=== PATIENT | male | born 1950 | race Hispanic/Latino ===

== ENCOUNTER 2020-04-24 14:02 | Observation (INO) | payer MEDICARE ==
[2020-04-24] MEDS ORDERED: PANTOPRAZOLE 40 MG INJ IV ONE (14:18)
[2020-04-24] MEDS ORDERED: PANTOPRAZOLE 80 MG in SODIUM CHLORIDE 0.9% 100 ML IV ONE (14:18)
--- NOTE | 2020-04-24 14:48 | XRay Report ---
CHEST 1 VIEW 04/24/2020 2:24 PM INDICATION / CLINICAL INFORMATION: GI Bleed. COMPARISON: None available. FINDINGS: SUPPORT DEVICES: None. HEART / MEDIASTINUM: Heart is normal size. Median sternotomy wires and CABG clips. LUNGS / PLEURA: No significant pulmonary or pleural abnormality. No pneumothorax. ADDITIONAL FINDINGS: No significant additional findings. IMPRESSION: 1. No acute findings. Signer Name: Linnea Osorio MD Signed: 04/24/2020 2:43 PM Workstation Name: [id number]
[2020-04-24 15:23] LABS: Basophils % (Auto) 0.6 % (0.0-1.8); Eosinophils # (Auto) 0.1 K/mm3 (0.0-0.4); Eosinophils % (Auto) 1.6 % (0.0-4.3); Hematocrit 31.8 % (35.5-45.6); Hemoglobin 10.6 gm/dl (11.8-15.2); Lymphocytes # (Auto) 1.5 K/mm3 (1.2-5.4); Lymphocytes % (Auto) 17.4 % (13.4-35.0); Mean Corpuscular HGB Conc 33 % (32-34); Mean Corpuscular Volume 84 fl (84-94); Monocytes # (Auto) 0.8 K/mm3 (0.0-0.8); Monocytes % (Auto) 9.3 % (0.0-7.3); Platelet Count 341 K/mm3 (140-440); Red Blood Count 3.78 M/mm3 (3.65-5.03); Red Cell Distribution Width 19.9 % (13.2-15.2)
[2020-04-24 15:31] LABS: INR 1.28 (0.87-1.13); Partial Thromboplastin Time 29.5 Sec. (24.2-36.6)
[2020-04-24 15:42] LABS: BUN/Creatinine Ratio 41; Blood Urea Nitrogen 41 mg/dL (9-20); Calcium 8.9 mg/dL (8.4-10.2); Hemolysis Index 5
--- NOTE | 2020-04-24 15:50 | Emergency Department Report ---
ED GI Bleed HPI - General Chief complaint: GI Bleed Stated complaint: COFFEE GROUND STOOLS Time Seen by Provider: 04/24/20 14:17 Source: patient, EMS Mode of arrival: Stretcher Limitations: No Limitations, Physical Limitation - History of Present Illness Initial comments: Mr. penn is a 70-year-old male with history of CAD status post four-vessel CABG, atrial fibrillation, diabetes mellitus, hypertension, skin cancer who presents with dark black stools for the last 4 days. Patient takes Xarelto for atrial fibrillation. He has recently used laxatives and antidiarrheal agents for both constipation and diarrhea. No previous history of GI bleed or peptic ulcer disease. Patient has mild nausea. He has decreased appetite. Stomach feels upset. No discrete pain. Patient was just released from halfway facility for rehabilitation on Monday. He underwent rehabilitation and skilled nurse facility for lower extremity weakness due to severe degenerative disc disease. Patient stopped smoking 2007. Former social drinker. Retired cdl truck driver. Patient is . MD complaint: melena -: Gradual, days(s) (4) Severity scale (0 -10): 0 Quality: painless Consistency: constant Improves with: none Worsens with: none Context: blood thinners (Xarelto) Associated Symptoms: nausea, loss of appetite, other (Stomach upset) - Related Data Allergies Allergy/AdvReac Type Severity Reaction Status Date / Time No Known Allergies Allergy Unverified 04/24/20 14:44 ED Review of Systems ROS: Stated complaint: COFFEE GROUND STOOLS Other details as noted in HPI Comment: All other systems reviewed and negative Constitutional: denies: fever, malaise Respiratory: denies: cough, shortness of breath Gastrointestinal: nausea, diarrhea, constipation. denies: abdominal pain ED Past Medical Hx - Past Medical History Previous Medical History?: Yes Hx Hypertension: Yes Hx Diabetes: Yes Additional medical history: a.fib, skin cancer on nose and forehead - Surgical History Past Surgical History?: Yes Additional Surgical History: CABG 2007 - Social History Smoking Status: Former Smoker Substance Use Type: None ED Physical Exam - General Limitations: Physical Limitation General appearance: alert, in no apparent distress - Head Head exam: Present: atraumatic, normocephalic - Eye Eye exam: Present: normal appearance - ENT ENT exam: Present: mucous membranes moist - Neck Neck exam: Present: normal inspection, full ROM - Respiratory Respiratory exam: Present: normal lung sounds bilaterally. Absent: respiratory distress, wheezes, rales, rhonchi - Cardiovascular Cardiovascular Exam: Present: regular rate, irregular rhythm, normal heart sounds. Absent: systolic murmur, diastolic murmur, rubs, gallop - GI/Abdominal GI/Abdominal exam: Present: soft, normal bowel sounds. Absent: distended, tende rness, guarding, rebound - Rectal Rectal exam: Present: heme (+) stool, other (Dark tarry brown stool) - Extremities Exam Extremities exam: Present: normal inspection - Neurological Exam Neurological exam: Present: alert, oriented X3 - Psychiatric Psychiatric exam: Present: normal affect, normal mood - Skin Skin exam: Present: warm, dry, intact, other (Erythematous skin sacral region, skin intact). Absent: rash ED Medical Decision Making - Lab Data Result diagrams: 04/24/20 15:01 04/24/20 15:01 Laboratory Results - last 24 hr 04/24/20 04/24/20 04/24/20 15:01 15:01 15:01 WBC 8.7 RBC 3.78 Hgb 10.6 L Hct 31.8 L MCV 84 MCH 28 MCHC 33 RDW 19.9 H Plt Count 341 Lymph % (Auto) 17.4 [place] % (Auto) 9.3 H Eos % (Auto) 1.6 Baso % (Auto) 0.6 Lymph # (Auto) 1.5 [place] # (Auto) 0.8 Eos # (Auto) 0.1 Baso # (Auto) 0.0 Seg Neutrophils % 71.1 H Seg Neutrophils # 6.2 PT 16.2 H INR 1.28 H APTT 29.5 Sodium 140 Potassium 4.4 Chloride 100.0 Carbon Dioxide 20 L Anion Gap 24 BUN 41 H Creatinine 1.0 Estimated GFR > 60 BUN/Creatinine Ratio 41 Glucose 145 H Calcium 8.9 - EKG Data -: EKG Interpreted by Me - EKG Data 04/24/20 15:47 EKG obtained 1452 EKG interpreted by me Atrial fibrillation ventricular rate 80 bpm normal axis normal QTC no ST elevation nonspecific T wave pattern - Radiology Data Radiology results: report reviewed CHEST 1 VIEW 04/24/2020 2:24 PM INDICATION / CLINICAL INFORMATION: GI Bleed. COMPARISON: None available. FINDINGS: SUPPORT DEVICES: None. HEART / MEDIASTINUM: Heart is normal size. Median sternotomy wires and CABG clips. LUNGS / PLEURA: No significant pulmonary or pleural abnormality. No pneumoth orax. ADDITIONAL FINDINGS: No significant additional findings. IMPRESSION: 1. No acute findings. - Medical Decision Making 1. Upper GI bleed: Patient has melena, INR elevated 1.28 with history of Xarelto use. Normal platelet count. Hemoglobin 10. Patient has been cardiovascular stable. Protonix bolus and infusion initiated. Patient has 2 peripheral IVs. Peptic ulcer disease versus gastritis. No indication of liver disease. Patient is admitted to telemetry. Critical care attestation.: If time is entered above; I have spent that time in minutes in the direct care of this critically ill patient, excluding procedure time. ED Disposition Clinical Impression: Acute upper GI bleed Disposition: OP ADMIT IP TO THIS HOSP Is pt being admited?: Yes Does the pt Need Aspirin: No Condition: Stable
[2020-04-24] MEDS ORDERED: SODIUM CHLORIDE 0.9% 1000 ML 1,000 ML IV ONE (15:52)
[2020-04-24 15:56] LABS: Alanine Aminotransferase 14 units/L (7-56); Albumin 3.3 g/dL (3.9-5); Bilirubin,Direct < 0.2 mg/dL (0-0.2)
--- NOTE | 2020-04-24 19:33 | Gastroenterology Consultation ---
History of Present Illness - Reason for Consult Consult date: 04/24/20 melena Requesting physician: LEXY FLORES - History of Present Illness This is a 70 yo male with pmh of DM, HTN, and afib on Xarelto presenting with 4 day h/o black tarry stools. Mild abdominal pain but no nausea/vomiting. No prior h/o GI bleed. Per patient, last colonoscopy 10 years ago and normal. Takes ibuprofen but not regularly. Last Bm was this morning. In the ED, HD stable. Hgb at 10 and no known prior labs. Medication list reviewed. Past History Past Medical History: atrial fib, hypertension Past Surgical History: denies: bowel surgery Social history: no significant social history Family history: no significant family history Medications and Allergies Allergies Allergy/AdvReac Type Severity Reaction Status Date / Time No Known Allergies Allergy Unverified 04/24/20 14:44 Active Meds: Active Medications Pantoprazole Sodium 80 mg/ (Sodium Chloride) 100 mls @ 10 mls/hr IV ONCE ONE Stop: 04/25/20 00:17 Last Admin: 04/24/20 15:19 Dose: 8 mg/hr, 10 mls/hr Documented by: Review of Systems - Review of Systems All systems: negative Constitutional: no weight loss, no weight gain Cardiovascular: no chest pain, no edema Gastrointestinal: abdominal pain, melena, no nausea, no vomiting, no BRBPR Neurological: no head injury Psychiatric: no anxiety Endocrine: no cold intolerance Hematologic/Lymphatic: no easy bruising Exam - Constitutional Vital Signs: Temp Pulse Resp BP Pulse Ox 98.3 F 75 19 125/71 99 04/24/20 19:00 04/24/20 19:00 04/24/20 19:00 04/24/20 19:00 04/24/20 19:00 General appearance: no acute distress - EENT Eyes: EOM intact ENT: hearing intact - Respiratory Respiratory effort: normal - Cardiovascular Rhythm: regular Heart Sounds: Present: S1 & S2 - Gastrointestinal General gastrointestinal: Present: soft, non-tender, non-distended - Neurologic Neurological: alert and oriented x3 - Labs CBC & Chem 7: 04/24/20 15:01 04/24/20 15:01 Lab Results: Laboratory Results - last 24 hr 04/24/20 04/24/20 04/24/20 15:01 15:01 15:01 WBC 8.7 RBC 3.78 Hgb 10.6 L Hct 31.8 L MCV 84 MCH 28 MCHC 33 RDW 19.9 H Plt Count 341 Lymph % (Auto) 17.4 [place] % (Auto) 9.3 H Eos % (Auto) 1.6 Baso % (Auto) 0.6 Lymph # (Auto) 1.5 [place] # (Auto) 0.8 Eos # (Auto) 0.1 Baso # (Auto) 0.0 Seg Neutrophils % 71.1 H Seg Neutrophils # 6.2 PT 16.2 H INR 1.28 H APTT 29.5 Sodium 140 Potassium 4.4 Chloride 100.0 Carbon Dioxide 20 L Anion Gap 24 BUN 41 H Creatinine 1.0 Estimated GFR > 60 BUN/Creatinine Ratio 41 Glucose 145 H Calcium 8.9 Total Bilirubin Direct Bilirubin Indirect Bilirubin AST ALT Alkaline Phosphatase Total Protein Albumin Albumin/Globulin Ratio 04/24/20 15:15 WBC RBC Hgb Hct MCV MCH MCHC RDW Plt Count Lymph % (Auto) [place] % (Auto) Eos % (Auto) Baso % (Auto) Lymph # (Auto) [place] # (Auto) Eos # (Auto) Baso # (Auto) Seg Neutrophils % Seg Neutrophils # PT INR APTT Sodium Potassium Chloride Carbon Dioxide Anion Gap BUN Creatinine Estimated GFR BUN/Creatinine Ratio Glucose Calcium Total Bilirubin 0.40 Direct Bilirubin < 0.2 Indirect Bilirubin 0.2 AST 13 ALT 14 Alkaline Phosphatase 102 Total Protein 5.8 L Albumin 3.3 L Albumin/Globulin Ratio 1.3 Assessment and Plan - Patient Problems (1) Acute upper GI bleed Current Visit: Yes Status: Acute Plan to address problem: # Melena # Upper GI bleed - HD stable - Hgb at 10. no known prior baseline. - ddx including PUD, gastritis, AVMs. - on Xarelto at home. last dose yesterday AM (04/23/2020). Rec - monitor H/H and transfuse as needed. - hold anticoagulation. - PPI IV - will plan for EGD tomorrow. - keep NPO.
[2020-04-24] MEDS: PANTOPRAZOLE 40 MG INJ IV SCH (21:30)
--- NOTE | 2020-04-24 22:33 | History and Physical Report ---
History of Present Illness Date of examination: 04/24/20 Date of admission: 04/24/20 18:10 Chief complaint: Dark stools for the last 4 days History of present illness: 70-year-old male with history of coronary artery disease, status post CABG and hypertension comes in for dark stools of 4 days duration. Patient is on Xarelto for atrial fibrillation. No lightheadedness or syncope. No hematemesis. Patient has decreased appetite and mild nausea. No fever or chills. No exposure to coronavirus. No exacerbating or relieving factors. - Past Medical History Previous Medical History?: Yes Hx Hypertension: Yes Hx Diabetes: Yes Additional medical history: a.fib, skin cancer on nose and forehead - Surgical History Past Surgical History?: Yes Additional Surgical History: CABG 2007 - Social History Smoking Status: Former Smoker Substance Use Type: None Review of Systems ROS: Stated complaint: COFFEE GROUND STOOLS Other details as noted in HPI Comment: All other systems reviewed and negative Constitutional: denies: fever, malaise Respiratory: denies: cough, shortness of breath Gastrointestinal: nausea, diarrhea, constipation. denies: abdominal pain Past History Past Medical History: atrial fib, hypertension Past Surgical History: denies: bowel surgery Social history: no significant social history Family history: no significant family history Medications and Allergies Allergies Allergy/AdvReac Type Severity Reaction Status Date / Time No Known Allergies Allergy Unverified 04/24/20 14:44 Home Medications Medication Instructions Recorded Confirmed Last Taken Type Aspirin [Aspirin BABY CHEW TAB] 81 mg PO QDAY 04/25/20 04/25/20 Unknown History Gabapentin [Neurontin] 100 mg PO TID 04/25/20 04/25/20 Unknown History Lisinopril/Hydrochlorothiazide 1 each PO DAILY 04/25/20 04/25/20 Unknown History [Zestoretic 10-12.5 mg Tablet] Lovastatin [Altoprev] 40 mg PO HS 04/25/20 04/25/20 Unknown History Rivaroxaban [Xarelto] 20 mg PO QHS 04/25/20 04/25/20 Unknown History amLODIPine [Norvasc] 5 mg PO DAILY 04/25/20 04/25/20 Unknown History atenoloL [Tenormin] 50 mg PO DAILY 04/25/20 04/25/20 Unknown History cloNIDine [Catapres] 0.1 mg PO Q8HR PRN 04/25/20 04/25/20 Unknown History glipiZIDE [Glucotrol] 5 mg PO QDAY 04/25/20 04/25/20 Unknown History metFORMIN [Glucophage] 500 mg PO BID 04/25/20 04/25/20 Unknown History Active Meds: Active Medications Pantoprazole Sodium 80 mg/ (Sodium Chloride) 100 mls @ 10 mls/hr IV ONCE ONE Stop: 04/25/20 00:17 Last Admin: 04/24/20 15:19 Dose: 8 mg/hr, 10 mls/hr Documented by: Pantoprazole Sodium (Protonix) 40 mg IV BID AURELIANO Last Admin: 04/24/20 21:30 Dose: 40 mg Documented by: Exam - Constitutional Vitals: Temp Pulse Resp BP Pulse Ox 98.2 F 84 20 117/52 99 04/24/20 20:34 04/24/20 20:34 04/24/20 20:34 04/24/20 20:34 04/24/20 20:34 General appearance: Present: no acute distress, well-nourished - EENT Eyes: Present: PERRL ENT: hearing intact, clear oral mucosa - Neck Neck: Present: supple, normal ROM - Respiratory Respiratory effort: normal Respiratory: bilateral: CTA - Cardiovascular Heart rate: 78 Rhythm: irregularly irregular Heart Sounds: Present: S1 & S2. Absent: rub, click - Extremities Extremities: no ischemia, pulses intact, pulses symmetrical, No edema Peripheral Pulses: within normal limits - Abdominal General gastrointestinal: Present: soft, non-tender, non-distended, normal bowel sounds Male genitourinary: Present: normal - Rectal Rectal Exam: deferred - Integumentary Integumentary: Present: clear, warm, dry - Musculoskeletal Musculoskeletal: gait normal, strength equal bilaterally - Psychiatric Psychiatric: appropriate mood/affect, intact judgment & insight - Neurologic Neurologic: CNII-XII intact, moves all extremities - Allied Health Allied health notes reviewed: nursing, case management HEART Score - HEART Score History: Slightly suspicious Age: > 65 Risk factors: 1-2 risk factors - Critical Actions Critical Actions: 4-6 pts:12-16.6% risk of adverse cardiac event. Should be admitted Results - Labs CBC & Chem 7: 04/25/20 04:48 04/25/20 04:48 Labs: Laboratory Last Values WBC 8.7 K/mm3 (4.5-11.0) 04/24/20 15:01 RBC 3.78 M/mm3 (3.65-5.03) 04/24/20 15:01 Hgb 10.6 gm/dl (11.8-15.2) L 04/24/20 15:01 Hct 31.8 % (35.5-45.6) L 04/24/20 15:01 MCV 84 fl (84-94) 04/24/20 15:01 MCH 28 pg (28-32) 04/24/20 15:01 MCHC 33 % (32-34) 04/24/20 15:01 RDW 19.9 % (13.2-15.2) H 04/24/20 15:01 Plt Count 341 K/mm3 (140-440) 04/24/20 15:01 Lymph % (Auto) 17.4 % (13.4-35.0) 04/24/20 15:01 [place] % (Auto) 9.3 % (0.0-7.3) H 04/24/20 15:01 Eos % (Auto) 1.6 % (0.0-4.3) 04/24/20 15:01 Baso % (Auto) 0.6 % (0.0-1.8) 04/24/20 15:01 Lymph # (Auto) 1.5 K/mm3 (1.2-5.4) 04/24/20 15:01 [place] # (Auto) 0.8 K/mm3 (0.0-0.8) 04/24/20 15:01 Eos # (Auto) 0.1 K/mm3 (0.0-0.4) 04/24/20 15:01 Baso # (Auto) 0.0 K/mm3 (0.0-0.1) 04/24/20 15:01 Seg Neutrophils % 71.1 % (40.0-70.0) H 04/24/20 15:01 Seg Neutrophils # 6.2 K/mm3 (1.8-7.7) 04/24/20 15:01 PT 16.2 Sec. (12.2-14.9) H 04/24/20 15:01 INR 1.28 (0.87-1.13) H 04/24/20 15:01 APTT 29.5 Sec. (24.2-36.6) 04/24/20 15:01 Sodium 140 mmol/L (137-145) 04/24/20 15:01 Potassium 4.4 mmol/L (3.6-5.0) 04/24/20 15:01 Chloride 100.0 mmol/L (98-107) 04/24/20 15:01 Carbon Dioxide 20 mmol/L (22-30) L 04/24/20 15:01 Anion Gap 24 mmol/L 04/24/20 15:01 BUN 41 mg/dL (9-20) H 04/24/20 15:01 Creatinine 1.0 mg/dL (0.8-1.3) 04/24/20 15:01 Estimated GFR > 60 ml/min 04/24/20 15:01 BUN/Creatinine Ratio 41 % 04/24/20 15:01 Glucose 145 mg/dL (75-100) H 04/24/20 15:01 Calcium 8.9 mg/dL (8.4-10.2) 04/24/20 15:01 Total Bilirubin 0.40 mg/dL (0.1-1.2) 04/24/20 15:15 Direct Bilirubin < 0.2 mg/dL (0-0.2) 04/24/20 15:15 Indirect Bilirubin 0.2 mg/dL 04/24/20 15:15 AST 13 units/L (5-40) 04/24/20 15:15 ALT 14 units/L (7-56) 04/24/20 15:15 Alkaline Phosphatase 102 units/L (35-129) 04/24/20 15:15 Total Protein 5.8 g/dL (6.3-8.2) L 04/24/20 15:15 Albumin 3.3 g/dL (3.9-5) L 04/24/20 15:15 Albumin/Globulin Ratio 1.3 % 04/24/20 15:15 - Imaging and Cardiology Imaging and Cardiology: Chest x-ray No acute findings. Jim/IV: IV Catheter Type [Right Hand] Peripheral IV Assessment and Plan Advance Directives: Yes (Full code) VTE prophylaxis?: Mechanical Plan of care discussed with patient/family: Yes - Patient Problems (1) Acute upper GI bleed Current Visit: Yes Status: Acute Plan to address problem: Patient on Xarelto which was discontinued. GI consult. Possible EGD. Serial hemoglobin and hematocrits. Transfuse if necessary. (2) Anemia Current Visit: Yes Status: Chronic Qualifiers: Anemia type: unspecified type Qualified Code(s): D64.9 - Anemia, unspecified Plan to address problem: Anemia work-up (3) Atrial fibrillation Current Visit: Yes Status: Chronic Plan to address problem: Hold Xarelto for now We will get cardiology consult regarding restarting Xarelto (4) Hypertension Current Visit: Yes Status: Chronic Qualifiers: Hypertension type: essential hypertension Qualified Code(s): I10 - Essential (primary) hypertension Plan to address problem: Antihypertensives if necessary. Antihypertensives on hold. (5) Coronary artery disease Current Visit: Yes Status: Acute Qualifiers: Coronary Disease-Associated Artery/Lesion type: bypass graft [place] vs. transplanted heart: [place] heart Plan to address problem: Isosorbide on hold. (6) DVT prophylaxis Current Visit: Yes Status: Acute Plan to address problem: On SCDs and GI prophylaxis.
[2020-04-24] MEDS ORDERED: METOCLOPRAMIDE 10 MG/2 ML INJ IV PRN (22:34)
[2020-04-24] MEDS ORDERED: ONDANSETRON 4 MG/2 ML INJ IV PRN (22:34)
[2020-04-24] MEDS ORDERED: ACETAMINOPHEN 325 MG TAB PO PRN (22:34)
[2020-04-24] MEDS ORDERED: D5W/0.9% NACL 1,000 ML IV SCH (23:00)
[2020-04-25 05:21] LABS: Basophils % (Auto) 0.5 % (0.0-1.8); Eosinophils # (Auto) 0.4 K/mm3 (0.0-0.4); Eosinophils % (Auto) 4.6 % (0.0-4.3); Hematocrit 28.7 % (35.5-45.6); Hemoglobin 9.6 gm/dl (11.8-15.2); Lymphocytes # (Auto) 2.3 K/mm3 (1.2-5.4); Lymphocytes % (Auto) 27.5 % (13.4-35.0); Mean Corpuscular HGB Conc 34 % (32-34); Mean Corpuscular Volume 84 fl (84-94); Monocytes # (Auto) 0.8 K/mm3 (0.0-0.8); Monocytes % (Auto) 9.8 % (0.0-7.3); Platelet Count 294 K/mm3 (140-440); Red Blood Count 3.42 M/mm3 (3.65-5.03); Red Cell Distribution Width 19.2 % (13.2-15.2)
[2020-04-25 05:38] LABS: Alanine Aminotransferase 11 units/L (7-56); BUN/Creatinine Ratio 37; Blood Urea Nitrogen 37 mg/dL (9-20); Hemolysis Index 5
[2020-04-25 08:02] LABS: % Iron Saturation 20.56 %
[2020-04-25] MEDS ORDERED: WATER FOR IRRIG STERILE 250 ML BOTTLE IR ONE (08:07)
[2020-04-25] MEDS ORDERED: WATER FOR IRRIG STERILE 1,000 ML BOTTLE ONE (08:07)
[2020-04-25] MEDS ORDERED: SODIUM CHLORIDE 0.9% 1000 ML 1,000 ML ONE (08:07)
--- NOTE | 2020-04-25 08:20 | Progress Note ---
Assessment and Plan Assessment and plan: (1) Acute upper GI bleed Current Visit: Yes Status: Acute Plan to address problem: Patient on Xarelto which was discontinued. GI consult appreciated, did EGD showed Samuel duodenal ulcer, severe esophagitis and gastritis GI recommended to do CAT scan of abdomen and pelvis, continue with PPI and start him on clear liquid diet. Hemiglobin dropped from 10.6-9.6 is morning Transfuse if necessary. (2) Anemia Current Visit: Yes Status: Chronic Qualifiers: Anemia type: unspecified type Qualified Code(s): D64.9 - Anemia, unspecified Plan to address problem: Anemia work-up Hemoglobin dropped from 10.6 to 9.6 this morning (3) Atrial fibrillation Current Visit: Yes Status: Chronic Plan to address problem: Hold Xarelto for now We will get cardiology consult regarding restarting Xarelto (4) Hypertension Current Visit: Yes Status: Chronic Qualifiers: Hypertension type: essential hypertension Qualified Code(s): I10 - Essential (primary) hypertension Plan to address problem: Antihypertensives if necessary. Antihypertensives on hold. (5) Coronary artery disease Current Visit: Yes Status: Acute Qualifiers: Coronary Disease-Associated Artery/Lesion type: bypass graft [place] vs. transplanted heart: [place] heart Plan to address problem: Isosorbide on hold. (6) DVT prophylaxis Current Visit: Yes Status: Acute Plan to address problem: On SCDs and GI prophylaxis. History Interval history: Patient was seen and evaluated this morning Patient did not have any bowel movement overnight Patient did not have any complaints Hospitalist Physical - Physical exam Narrative exam: Not in cardiopulmonary distress. The patient is obese. Vital signs as documented. Head exam is unremarkable. No scleral icterus . Neck is without jugular venous distension, thyromegaly, or carotid bruits. Lungs are clear to auscultation. Cardiac exam reveals regular rate and Rhythm. Abdominal exam reveals normal bowel sounds, nontender, no organomegaly. Extremities are nonedematous and both femoral and pedal pulses are normal. PLUG GROWER: Alert and oriented 3. No focal weakness. - Constitutional Vitals: Temp Pulse Resp BP Pulse Ox 98.3 F 89 20 141/80 98 04/25/20 05:05 04/25/20 05:05 04/25/20 05:05 04/25/20 05:05 04/25/20 05:05 General appearance: Present: no acute distress, well-nourished HEART Score - HEART Score Age: > 65 Risk factors: 1-2 risk factors - Critical Actions Critical Actions: 4-6 pts:12-16.6% risk of adverse cardiac event. Should be admitted Results - Labs CBC & Chem 7: 04/25/20 04:48 04/25/20 04:48 Labs: Laboratory Last Values WBC 8.5 K/mm3 (4.5-11.0) 04/25/20 04:48 RBC 3.42 M/mm3 (3.65-5.03) L 04/25/20 04:48 Hgb 9.6 gm/dl (11.8-15.2) L 04/25/20 04:48 Hct 28.7 % (35.5-45.6) L 04/25/20 04:48 MCV 84 fl (84-94) 04/25/20 04:48 MCH 28 pg (28-32) 04/25/20 04:48 MCHC 34 % (32-34) 04/25/20 04:48 RDW 19.2 % (13.2-15.2) H 04/25/20 04:48 Plt Count 294 K/mm3 (140-440) 04/25/20 04:48 Lymph % (Auto) 27.5 % (13.4-35.0) 04/25/20 04:48 [place] % (Auto) 9.8 % (0.0-7.3) H 04/25/20 04:48 Eos % (Auto) 4.6 % (0.0-4.3) H 04/25/20 04:48 Baso % (Auto) 0.5 % (0.0-1.8) 04/25/20 04:48 Lymph # (Auto) 2.3 K/mm3 (1.2-5.4) 04/25/20 04:48 [place] # (Auto) 0.8 K/mm3 (0.0-0.8) 04/25/20 04:48 Eos # (Auto) 0.4 K/mm3 (0.0-0.4) 04/25/20 04:48 Baso # (Auto) 0.0 K/mm3 (0.0-0.1) 04/25/20 04:48 Seg Neutrophils % 57.6 % (40.0-70.0) 04/25/20 04:48 Seg Neutrophils # 4.9 K/mm3 (1.8-7.7) 04/25/20 04:48 PT 16.2 Sec. (12.2-14.9) H 04/24/20 15:01 INR 1.28 (0.87-1.13) H 04/24/20 15:01 APTT 29.5 Sec. (24.2-36.6) 04/24/20 15:01 Sodium 137 mmol/L (137-145) 04/25/20 04:48 Potassium 4.6 mmol/L (3.6-5.0) 04/25/20 04:48 Chloride 102.0 mmol/L (98-107) 04/25/20 04:48 Carbon Dioxide 26 mmol/L (22-30) 04/25/20 04:48 Anion Gap 14 mmol/L 04/25/20 04:48 BUN 37 mg/dL (9-20) H 04/25/20 04:48 Creatinine 1.0 mg/dL (0.8-1.3) 04/25/20 04:48 Estimated GFR > 60 ml/min 04/25/20 04:48 BUN/Creatinine Ratio 37 % 04/25/20 04:48 Glucose 98 mg/dL (75-100) 04/25/20 04:48 Hemoglobin A1c 7.2 % (4-6) H 04/25/20 04:48 Calcium 9.0 mg/dL (8.4-10.2) 04/25/20 04:48 Iron 51 ug/dL (49-181) 04/25/20 04:48 TIBC 248 mcg/dL (250-450) L 04/25/20 04:48 % Saturation 20.56 % 04/25/20 04:48 Transferrin 215 mg/dl (180-329) 04/25/20 04:48 Total Bilirubin 0.40 mg/dL (0.1-1.2) 04/25/20 04:48 Direct Bilirubin < 0.2 mg/dL (0-0.2) 04/24/20 15:15 Indirect Bilirubin 0.2 mg/dL 04/24/20 15:15 AST 13 units/L (5-40) 04/25/20 04:48 ALT 11 units/L (7-56) 04/25/20 04:48 Alkaline Phosphatase 92 units/L (35-129) 04/25/20 04:48 Total Protein 5.9 g/dL (6.3-8.2) L 04/25/20 04:48 Albumin 3.0 g/dL (3.9-5) L 04/25/20 04:48 Albumin/Globulin Ratio 1.0 % 04/25/20 04:48 Jim/IV: Voiding Method Urinal IV Catheter Type [Right Hand] Peripheral IV Active Medications - Current Medications Current Medications: Generic Name Dose Route Start Last Admin Trade Name Freq PRN Reason Stop Dose Admin Acetaminophen 650 mg 04/24/20 22:34 Tylenol PO Q4H PRN Pain MILD(1-3)/Fever >100.5/DANIELLE Hydromorphone HCl 0.5 mg 04/24/20 22:34 Dilaudid IV Q3H PRN Pain , Severe (7-10) Dextrose/Sodium Chloride 1,000 mls @ 100 mls/hr 04/24/20 23:00 04/25/20 05:20 D5ns IV 100 mls/hr DIRECT AURELIANO Administration Insulin Human Lispro 0 unit 04/25/20 08:00 Humalog SUB-Q Q6HR AURELIANO Protocol Metoclopramide HCl 10 mg 04/24/20 22:34 Reglan IV Q6H PRN Nausea And Vomiting Ondansetron HCl 4 mg 04/24/20 22:34 Zofran IV Q3H PRN Nausea And Vomiting Pantoprazole Sodium 40 mg 04/24/20 22:00 04/24/20 21:30 Protonix IV 40 mg BID AURELIANO Administration Sodium Chloride 10 ml 04/25/20 10:00 Sodium Chloride Flush Syringe 10 Ml IV BID AURELIANO Sodium Chloride 10 ml 04/24/20 22:34 Sodium Chloride Flush Syringe 10 Ml IV PRN PRN LINE FLUSH
--- NOTE | 2020-04-25 08:28 | Anesthesia Consultation ---
Anesthesia Consult and Med Hx Date of service: 04/25/20 - Airway Anesthetic Teeth Evaluation: Dentures ROM Head & Neck: Inadequate Mental/Hyoid Distance: Inadequate Mallampati Class: Class II - Pulmonary Exam CTA: Yes - Pre-Operative Health Status ASA Pre-Surgery Classification: ASA3 Proposed Anesthetic Plan: MAC - Pulmonary Hx Smoking: Yes (Quit 2007) Hx Asthma: No SOB: Yes COPD: No Hx Sleep Apnea: Yes (Does not use CPAP machine) - Cardiovascular System Hx Hypertension: Yes Hx Coronary Artery Disease: Yes Hx Cardia Arrhythmia: Yes (Atrial Fibrllation) Hx Pacemaker: No Hx Internal Defibrillator: No - Central Nervous System Hx Neuromuscular Disorder: No Hx Seizures: No CVA: No Hx Psychiatric Problems: No - Gastrointestinal Hx Ulcer: No - Endocrine Hx Renal Disease: No Hx Liver Disease: No Hx Non-Insulin Dependent Diabetes: Yes Hx Thyroid Disease: No - Hematic Hx Anemia: Yes - Other Systems Hx Alcohol Use: Yes (Quit in 2007) Hx Substance Use: No Hx Cancer: Yes (Skin CA- nose) Hx Obesity: Yes (BMI- 39.9kg) - Additional Comments Anesthesia Medical History Comments: Denied previous anesthesia complications
[2020-04-25] MEDS: INSULIN LISPRO 100 UNIT/ML VIAL 3 mL SUB-Q SCH ×3 (08:31→17:00)
--- NOTE | 2020-04-25 08:33 | Anesthesia Day of Surgery ---
Anesthesia Day of Surgery - Day of Surgery Patient Examined: Yes Patient H&P Reviewed: Yes Patient is NPO: Yes Beta Blockers: No Cardiac Clearance: No Pulmonary Clearance: No
[2020-04-25] MEDS ORDERED: propofoL 200 MG/20 ML VIAL IV ONE (08:37)
[2020-04-25] MEDS ORDERED: LIDOCAINE MPF (2%) 20 MG/1 ML VIAL 5 ML ONE (08:37)
[2020-04-25] MEDS ORDERED: ONDANSETRON 4 MG/2 ML INJ ONE (08:37)
[2020-04-25] MEDS ORDERED: KETAMINE/STERILE WATER 50 MG/ML SYRINGE ONE (08:38)
--- NOTE | 2020-04-25 08:58 | Operative Report ---
Operative Report Operative Report: Esophagogastroduodenoscopy Procedure Note Date of procedure: 04/25/2020 Endoscopist: Angel Paulino Pre-op diagnosis/indication: GI bleed, melena Post-op diagnosis: Large, cratered clean based duodenal bulb ulcer, severe gastritis, erosive esophagitis MEDICATIONS: MAC COMPLICATIONS: No immediate complications ESTIMATED BLOOD LOSS: Minimal DESCRIPTION OF PROCEDURE: After consent was obtained, the patient was placed in the left lateral decubitis position. The olympus endoscope was inserted into the patient's mouth under direct vision and advanced to the 2nd portion of the duodenum without difficulty. The patient tolerated the procedure well. The views of the mucosa were good. The patient's vital signs were monitored continuously throughout the procedure. FINDINGS: There was severe erosive esophagitis in the lower third of the esophagus. There was mucosal oozing of blood with contact, but no high risk bleeding lesions. ? distal small esophageal varices without high risk bleeding stigmata. Severe, diffuse erythematous mucosa throughout the body of the stomach and antru m. Biopsies were obtained. No high risk bleeding lesions. There was a large (~3 cm), cratered ulcer in the posterior wall of the duodenal bulb. The ulcer was clean based without high risk bleeding stigmata. Bile was seen throughout the visualized portion of the duodenum. IMPRESSION: 1. Large, cratered clean based duodenal bulb ulcer - likely source of GI bleeding. No high risk bleeding stigmata 2. Erosive esophagitis 3. Severe gastritis. Biopsied 4. ? distal esophageal varices RECOMMENDATIONS: -continue PPI BID dosing -will obtain ct scan of abdomen given possible varices to evaluate for liver disease/cirrhosis -okay to resume clears today -hold xeralto for time being -will need eventual repeat EGD ~6-8 weeks will follow
--- NOTE | 2020-04-25 09:14 | Post Anesthesia Evaluation ---
- Post Anesthesia Evaluation Patient Participated: Yes Airway Patent: Yes Stable Respiratory Function: Yes Nausea/Vomiting: No Temp > 96.8F: Yes Pain Manageable: Yes Adequeate Hydration: Yes Anesthesia Complications: No Block Receding Appropriately: Not Applicable Patient on Ventilator: No
[2020-04-25] MEDS: PANTOPRAZOLE 40 MG INJ IV SCH ×2 (09:58→21:12)
[2020-04-25] MEDS: SODIUM CHLORIDE 0.9% 1000 ML 1,000 ML IV SCH (09:59)
--- NOTE | 2020-04-25 13:03 | Cat Scan Report ---
CT ABDOMEN AND PELVIS WITH CONTRAST INDICATION / CLINICAL INFORMATION: Duodenal ulcer, esophageal varices, cirrhosis. TECHNIQUE: Axial CT images were obtained through the abdomen and pelvis following the administration of intraven ous contrast. All CT scans at this location are performed using CT dose reduction for ALARA by means of automated exposure control. COMPARISON: None available. FINDINGS: LOWER CHEST: No significant abnormality. LIVER: No significant abnormality. GALLBLADDER: No significant abnormality. PANCREAS: No significant abnormality. SPLEEN: No significant abnormality. ADRENALS: No significant abnormality. KIDNEYS / URETERS: No significant abnormality. Left parapelvic renal cyst. URINARY BLADDER: No significant abnormality. REPRODUCTIVE ORGANS: No significant abnormality. STOMACH / SMALL BOWEL: There is mild inflammatory fat stranding near the pylorus/first part of the du odenum. No evidence of perforation or fluid collection. COLON: No significant abnormality. APPENDIX: No significant abnormality. PERITONEUM: No free fluid. No free air. No fluid collection. LYMPH NODES: No significant adenopathy. AORTA / ARTERIES: Moderate atherosclerotic calcification without acute abnormality. IVC / VEINS: No significant abnormality. SKELETAL SYSTEM: No significant abnormality. ADDITIONAL FINDINGS: Fat-containing right inguinal hernia. IMPRESSION: 1. Mild inflammatory fat stranding near the pylorus/first part of the duodenum without perforation or fluid collection. Endoscopy may be helpful for further evaluation. 2. Fat-containing right inguinal hernia. Signer Name: Reza Hope MD Signed: 04/25/2020 12:58 PM Workstation Name: [id number]
--- NOTE | 2020-04-25 13:31 | Consultation ---
HISTORY OF PRESENT ILLNESS: The patient is a 70-year-old male known to Dr. Olvera in our group and he has a history of bypass surgery, hypertension and atrial fibrillation. He is a prior smoker. He also has diabetes. He was admitted with a 4-day history of melena. He was found to have a duodenal ulcer and anemia. Anticoagulation has been held. He describes himself as relatively inactive with dyspnea on exertion, no recent ankle swelling and no recent chest pain. There is no history of strokes or congestive heart failure. He had bypass surgery in 2007. PAST HISTORY: See the nurse's list. MEDICATIONS: See the nurse's list. ALLERGIES: None. SOCIAL HISTORY: Smoking, prior smoker. Alcohol, no heavy use. PREVIOUS OPERATIONS: Coronary artery bypass surgery. FAMILY HISTORY: Noncontributory. REVIEW OF SYSTEMS: Chronic back pain, relatively inactive, skin cancer. He has had some nausea, constipation and diarrhea prior to the melena. He was noted to have possible esophageal varices and liver evaluation is in progress. PHYSICAL EXAMINATION: GENERAL: Well-developed, markedly overweight, no acute distress. Alert, oriented, cooperative. Mental status normal. EYES, NOSE, AND THROAT: Unremarkable. NECK: Reveals mild JVD. There are no bruits. Neck is supple, no masses. LUNGS: Clear. No labored respirations. HEART: No rubs, murmurs, or gallops. Rhythm is irregular. ABDOMEN: Soft, nontender. Bowel sounds intact. Limited exam. EXTREMITIES: No cyanosis, clubbing, edema. Peripheral pulses are intact. NEUROLOGIC: Symmetrical. IMPRESSION: 1. Status post upper gastrointestinal bleed with anemia due to a duodenal ulcer: Currently stable. 2. Atrial fibrillation, chronic: Anticoagulation being held. 3. History of coronary artery bypass surgery, stable. 4. Morbid obesity. 5. Hypertension. 6. Diabetes. PLAN: Hold anticoagulation until okay with GI. Continue medical therapy for his multiple chronic medical problems. Thank you for this consultation. We will follow the patient. JOB# [id number] JDS/NTS
[2020-04-25 14:36] LABS: Hematocrit 27.4 % (35.5-45.6); Hemoglobin 9.1 gm/dl (11.8-15.2)
[2020-04-26 05:16] LABS: Basophils # (Auto) 0.1 K/mm3 (0.0-0.1); Basophils % (Auto) 0.7 % (0.0-1.8); Eosinophils # (Auto) 0.4 K/mm3 (0.0-0.4); Eosinophils % (Auto) 4.7 % (0.0-4.3); Hematocrit 27.9 % (35.5-45.6); Hemoglobin 9.1 gm/dl (11.8-15.2); Lymphocytes # (Auto) 1.6 K/mm3 (1.2-5.4); Lymphocytes % (Auto) 21.9 % (13.4-35.0); Mean Corpuscular HGB Conc 33 % (32-34); Mean Corpuscular Volume 85 fl (84-94); Monocytes # (Auto) 0.6 K/mm3 (0.0-0.8); Monocytes % (Auto) 8.8 % (0.0-7.3); Platelet Count 263 K/mm3 (140-440); Red Cell Distribution Width 19.5 % (13.2-15.2)
[2020-04-26] MEDS: INSULIN LISPRO 100 UNIT/ML VIAL 3 mL SUB-Q SCH ×4 (08:55→17:51)
[2020-04-26] MEDS: PANTOPRAZOLE 40 MG INJ IV SCH ×2 (09:39→21:23)
[2020-04-26] MEDS: SODIUM CHLORIDE 0.9% 1000 ML 1,000 ML IV SCH (09:40)
--- NOTE | 2020-04-26 12:37 | Progress Note ---
Assessment and Plan - Patient Problems (1) Coronary artery disease Current Visit: Yes Status: Acute Qualifiers: Coronary Disease-Associated Artery/Lesion type: bypass graft [place] vs. transplanted heart: [place] heart (2) Anemia Current Visit: Yes Status: Chronic Qualifiers: Anemia type: unspecified type Qualified Code(s): D64.9 - Anemia, unspecified (3) Atrial fibrillation Current Visit: Yes Status: Chronic Subjective Date of service: 04/26/20 Interval history: NO C/O Objective Vital Signs Temp Pulse Resp BP Pulse Ox 04/26/20 08:56 86 20 04/26/20 08:31 99.4 F 93 H 20 114/48 98 04/26/20 04:20 97.4 F L 77 18 145/74 96 04/26/20 04:00 79 04/25/20 23:40 97.4 F L 94 H 20 139/75 97 04/25/20 20:22 97.4 F L 89 20 146/83 96 04/25/20 18:00 83 - Physical Examination General: No Apparent Distress HEENT: Positive: PERRL Neck: Positive: neck supple Cardiac: Positive: Irregularly Regular Lungs: Positive: Decreased Breath Sounds Abdomen: Positive: Soft Extremities: Present: edema (NO) - Labs and Meds CBC 04/25/20 04/26/20 Range/Units 13:53 04:31 WBC 7.4 (4.5-11.0) K/mm3 RBC 3.30 L (3.65-5.03) M/mm3 Hgb 9.1 L 9.1 L (11.8-15.2) gm/dl Hct 27.4 L 27.9 L (35.5-45.6) % Plt Count 263 (140-440) K/mm3 Lymph # (Auto) 1.6 (1.2-5.4) K/mm3 [place] # (Auto) 0.6 (0.0-0.8) K/mm3 Eos # (Auto) 0.4 (0.0-0.4) K/mm3 Baso # (Auto) 0.1 (0.0-0.1) K/mm3
--- NOTE | 2020-04-26 14:12 | Gastroenterology Progress Note ---
Assessment and Plan UGI bleed - large, cratered clean based DU; also with erosive esophagitis. H/H stable, no overt bleeding since procedure. advance diet tomorrow if no further bleeding, cont PPI BID dosing. would hold anticoagulation for now given severity of DU (can consider restarting in 2 weeks to allow time for healing of ulcer). f/u path from endoscopy. ct scan did not show signs of cirrhosis of the liver Subjective Date of service: 04/26/20 Principal diagnosis: GI bleed Interval history: pt denies abd pain or gi bleeding Objective - Constitutional Vitals: Temp Pulse Resp BP Pulse Ox 99.4 F 86 20 114/48 98 04/26/20 08:31 04/26/20 08:56 04/26/20 08:56 04/26/20 08:31 04/26/20 08:31 General appearance: no acute distress, obese - Respiratory Respiratory effort: normal Respiratory: bilateral: CTA - Cardiovascular Heart Sounds: Present: S1 & S2 - Gastrointestinal General gastrointestinal: Present: soft, non-tender - Neurologic Neurological: alert and oriented x3 - Labs CBC & Chem 7: 04/26/20 04:31 04/25/20 04:48 Labs: Laboratory Results - last 24 hr 04/25/20 04/25/20 04/25/20 13:53 16:01 23:51 WBC RBC Hgb 9.1 L Hct 27.4 L MCV MCH MCHC RDW Plt Count Lymph % (Auto) [place] % (Auto) Eos % (Auto) Baso % (Auto) Lymph # (Auto) [place] # (Auto) Eos # (Auto) Baso # (Auto) Seg Neutrophils % Seg Neutrophils # POC Glucose 134 H 103 04/26/20 04/26/20 04:31 06:31 WBC 7.4 RBC 3.30 L Hgb 9.1 L Hct 27.9 L MCV 85 MCH 28 MCHC 33 RDW 19.5 H Plt Count 263 Lymph % (Auto) 21.9 [place] % (Auto) 8.8 H Eos % (Auto) 4.7 H Baso % (Auto) 0.7 Lymph # (Auto) 1.6 [place] # (Auto) 0.6 Eos # (Auto) 0.4 Baso # (Auto) 0.1 Seg Neutrophils % 63.9 Seg Neutrophils # 4.7 POC Glucose 120 H
--- NOTE | 2020-04-26 14:37 | Progress Note ---
Assessment and Plan - Patient Problems (1) Acute upper GI bleed Current Visit: Yes Status: Acute Plan to address problem: Patient with large cratered duodenal ulcer. Also severe gastritis and erosive gastritis. Treatment PPI twice daily. CT scan was unremarkable for any liver disease. Xarelto on hold secondary to the severity of patient's ulcers. Plan is to advance diet tomorrow. Repeat EGD 6 to 8 weeks. (2) Coronary artery disease Current Visit: Yes Status: Acute Qualifiers: Coronary Disease-Associated Artery/Lesion type: bypass graft [place] vs. transplanted heart: [place] heart Plan to address problem: Patient status post CABG remains chest pain-free at this time. Patient's pain epigastric pain continue antilipid anti-blood pressure medications. (3) Anemia Current Visit: Yes Status: Chronic Qualifiers: Anemia type: unspecified type Qualified Code(s): D64.9 - Anemia, unspecified Plan to address problem: Anemia second to acute GI blood loss anemia has improved. (4) Atrial fibrillation Current Visit: Yes Status: Chronic Plan to address problem: Atrial fibrillation at present rate well controlled. Xarelto and anticoagulation on hold secondary to bleeding ulcer. Will resume when appropriate. (5) Hypertension Current Visit: Yes Status: Chronic Qualifiers: Hypertension type: essential hypertension Qualified Code(s): I10 - Essential (primary) hypertension (6) Diabetes Current Visit: Yes Status: Acute Plan to address problem: Fairly well controlled A1c 7.2. Accu-Chek today between 120 and 130. (7) Morbid obesity Current Visit: Yes Status: Acute (8) Morbid obesity due to excess calories Current Visit: Yes Status: Acute (9) Morbid obesity due to excess calories Current Visit: Yes Status: Acute Plan to address problem: Lifestyle modifications Subjective Date of service: 04/26/20 Principal diagnosis: GI bleed Interval history: Patient doing well. No stool no blood noted only passing gas. No abdominal pain at this time. I did discuss EGD findings with patient. Plan is to advance diet tomorrow if tolerated. Objective - Constitutional Vitals: Vital Signs - 12hr 04/26/20 04/26/20 04/26/20 04:00 04:20 08:31 Temperature 97.4 F L 99.4 F Pulse Rate 79 77 93 H Respiratory 18 20 Rate Blood Pressure 145/74 114/48 O2 Sat by Pulse 96 98 Oximetry 04/26/20 08:56 Temperature Pulse Rate 86 Respiratory 20 Rate Blood Pressure O2 Sat by Pulse Oximetry General appearance: Present: no acute distress, well-nourished - EENT Eyes: PERRL, EOM intact ENT: hearing intact, clear oral mucosa Ears: bilateral: normal - Neck Neck: supple, normal ROM - Respiratory Respiratory effort: normal Respiratory: bilateral: CTA - Breasts Breasts: normal - Cardiovascular Rhythm: regular Heart Sounds: Present: S1 & S2. Absent: gallop, rub Extremities: pulses intact, No edema, normal color, Full ROM - Gastrointestinal General gastrointestinal: Present: soft, non-tender, non-distended, normal bowel sounds - Genitourinary Male genitourinary: normal - Integumentary Integumentary: clear, warm, dry - Musculoskeletal Musculoskeletal: 1, strength equal bilaterally - Neurologic Neurologic: moves all extremities - Psychiatric Psychiatric: memory intact, appropriate mood/affect, intact judgment & insight - Labs CBC & Chem 7: 04/26/20 04:31 04/25/20 04:48 Labs: Abnormal lab results 04/25/20 04/25/20 04/26/20 Range/Units 13:53 16:01 04:31 RBC 3.30 L (3.65-5.03) M/mm3 Hgb 9.1 L 9.1 L (11.8-15.2) gm/dl Hct 27.4 L 27.9 L (35.5-45.6) % RDW 19.5 H (13.2-15.2) % [place] % (Auto) 8.8 H (0.0-7.3) % Eos % (Auto) 4.7 H (0.0-4.3) % POC Glucose 134 H (70-105) 04/26/20 Range/Units 06:31 RBC (3.65-5.03) M/mm3 Hgb (11.8-15.2) gm/dl Hct (35.5-45.6) % RDW (13.2-15.2) % [place] % (Auto) (0.0-7.3) % Eos % (Auto) (0.0-4.3) % POC Glucose 120 H (70-105) HEART Score - HEART Score Age: > 65 Risk factors: 1-2 risk factors - Critical Actions Critical Actions: 4-6 pts:12-16.6% risk of adverse cardiac event. Should be admitted
[2020-04-27] MEDS: INSULIN LISPRO 100 UNIT/ML VIAL 3 mL SUB-Q SCH ×3 (00:44→13:25)
[2020-04-27] MEDS: SODIUM CHLORIDE 0.9% 1000 ML 1,000 ML IV SCH (06:30)
[2020-04-27 08:06] LABS: Basophils % (Auto) 0.5 % (0.0-1.8); Eosinophils # (Auto) 0.3 K/mm3 (0.0-0.4); Eosinophils % (Auto) 4.1 % (0.0-4.3); Hematocrit 27.7 % (35.5-45.6); Hemoglobin 9.2 gm/dl (11.8-15.2); Lymphocytes # (Auto) 1.3 K/mm3 (1.2-5.4); Lymphocytes % (Auto) 20.8 % (13.4-35.0); Mean Corpuscular HGB Conc 33 % (32-34); Mean Corpuscular Volume 85 fl (84-94); Monocytes # (Auto) 0.6 K/mm3 (0.0-0.8); Monocytes % (Auto) 9.5 % (0.0-7.3); Platelet Count 222 K/mm3 (140-440); Red Blood Count 3.26 M/mm3 (3.65-5.03); Red Cell Distribution Width 19.9 % (13.2-15.2)
[2020-04-27] MEDS: HYDROmorphone 1 MG/1 ML INJ IV PRN ×2 (08:10→12:15)
[2020-04-27 08:16] LABS: Blood Urea Nitrogen 19 mg/dL (9-20); Calcium 8.6 mg/dL (8.4-10.2); Hemolysis Index 5
[2020-04-27 08:22] LABS: BUN/Creatinine Ratio 27
[2020-04-27 08:32] VITALS: BP 146/66
[2020-04-27] MEDS: PANTOPRAZOLE 40 MG INJ IV SCH (09:46)
--- NOTE | 2020-04-27 09:54 | Gastroenterology Progress Note ---
Assessment and Plan UGI bleed - large, cratered clean based DU; also with erosive esophagitis. H/H stable, no overt bleeding since procedure. tolerating advanced diet. cont PPI BId dosing. would hold AC for 2 weeks to allow time for ulcer healing. f/u path from procedure. pt instructed to f/u in GI clinic in 2 weeks and should have repeat upper endoscopy in 6-8 weeks for re-assessment. will sign off, please call as needed or with questions. Subjective Date of service: 04/27/20 Principal diagnosis: GI bleed Interval history: pt doing well, diet advanced and tolerating w/o difficulty. no overt gi bleeding. Objective - Constitutional Vitals: Temp Pulse Resp BP Pulse Ox 98.5 F 93 H 20 146/66 97 04/27/20 07:46 04/27/20 07:46 04/27/20 07:46 04/27/20 07:46 04/27/20 07:46 General appearance: no acute distress, obese - Respiratory Respiratory effort: normal Respiratory: bilateral: CTA - Cardiovascular Rhythm: regular Heart Sounds: Present: S1 & S2 - Gastrointestinal General gastrointestinal: Present: soft, non-tender, non-distended - Labs CBC & Chem 7: 04/27/20 07:51 04/27/20 07:51 Labs: Laboratory Results - last 24 hr 04/26/20 04/27/20 04/27/20 16:25 00:45 06:39 WBC RBC Hgb Hct MCV MCH MCHC RDW Plt Count Lymph % (Auto) [place] % (Auto) Eos % (Auto) Baso % (Auto) Lymph # (Auto) [place] # (Auto) Eos # (Auto) Baso # (Auto) Seg Neutrophils % Seg Neutrophils # Sodium Potassium Chloride BUN Creatinine Estimated GFR BUN/Creatinine Ratio Glucose POC Glucose 106 H 99 121 H Calcium 04/27/20 04/27/20 07:51 07:51 WBC 6.2 RBC 3.26 L Hgb 9.2 L Hct 27.7 L MCV 85 MCH 28 MCHC 33 RDW 19.9 H Plt Count 222 Lymph % (Auto) 20.8 [place] % (Auto) 9.5 H Eos % (Auto) 4.1 Baso % (Auto) 0.5 Lymph # (Auto) 1.3 [place] # (Auto) 0.6 Eos # (Auto) 0.3 Baso # (Auto) 0.0 Seg Neutrophils % 65.1 Seg Neutrophils # 4.0 Sodium 140 Potassium 3.8 Chloride 105.4 BUN 19 Creatinine 0.7 L Estimated GFR > 60 BUN/Creatinine Ratio 27 Glucose 110 H POC Glucose Calcium 8.6
--- NOTE | 2020-04-27 10:09 | Progress Note ---
Assessment and Plan Chronic atrial fibrillation, rate control Xarelto has been discontinued due to GI bleed Upper GI bleed Hx of CAD s/p CABG Hypertension Diabetes Obesity Continue rate controlling agents for chronic atrial fibrillation. Anticoagulation has been discontinued due to GI bleed. Subjective Date of service: 04/27/20 Principal diagnosis: GI bleed Interval history: Patient denies chest pain and unusual shortness of breath. Atrial fibrillation with a well controlled ventricular rate on telemetry. Objective Vital Signs Temp Pulse Resp BP Pulse Ox 04/27/20 07:46 98.5 F 93 H 20 146/66 97 04/27/20 04:41 98.1 F 83 20 145/74 97 04/26/20 23:56 98.4 F 87 20 149/79 96 04/26/20 22:57 18 98 04/26/20 22:00 88 04/26/20 19:26 98.3 F 96 H 20 155/93 98 04/26/20 15:36 97.7 F 85 20 139/84 97 - Physical Examination General: No Apparent Distress, Other (obese) HEENT: Positive: PERRL Neck: Positive: neck supple Cardiac: Positive: irregularly irregular Abdomen: Positive: Soft Extremities: Present: edema (NO) - Labs and Meds CBC 04/27/20 Range/Units 07:51 WBC 6.2 (4.5-11.0) K/mm3 RBC 3.26 L (3.65-5.03) M/mm3 Hgb 9.2 L (11.8-15.2) gm/dl Hct 27.7 L (35.5-45.6) % Plt Count 222 (140-440) K/mm3 Lymph # (Auto) 1.3 (1.2-5.4) K/mm3 [place] # (Auto) 0.6 (0.0-0.8) K/mm3 Eos # (Auto) 0.3 (0.0-0.4) K/mm3 Baso # (Auto) 0.0 (0.0-0.1) K/mm3 Comprehensive Metabolic Panel 04/27/20 Range/Units 07:51 Sodium 140 (137-145) mmol/L Potassium 3.8 (3.6-5.0) mmol/L Chloride 105.4 (98-107) mmol/L BUN 19 (9-20) mg/dL Creatinine 0.7 L (0.8-1.3) mg/dL Glucose 110 H (75-100) mg/dL Calcium 8.6 (8.4-10.2) mg/dL
--- NOTE | 2020-04-27 10:18 | Discharge Summary ---
Providers - Providers Date of Admission: 04/24/20 18:10 Date of discharge: 04/27/20 Attending physician: MARCEL SHAH 04/25/20 07:28 Consult to Physician [CONS] Routine Comment: Consulting Provider: YVON REYES Physician Instructions: Reason For Exam: Atrial fibrillation on Xarelto, stopped GI bleed Primary care physician: CHUCK TENDER Hospitalization Condition: Stable Pertinent studies: EGD showed Samuel duodenal ulcer, severe esophagitis and gastritis Hospital course: atient with large cratered duodenal ulcer. Also severe gastritis and erosive gastritis. Treatment PPI twice daily. CT scan was unremarkable for any liver disease. Xarelto on hold secondary to the severity of patient's ulcers.will restart 2 weeks tolerated the advanced diet Repeat EGD 6 to 8 weeks. Disposition: TO HOME OR SELFCARE - Discharge Diagnoses (1) Acute upper GI bleed Status: Acute Comment: No further evidence of GI bleed. H&H is remained stable. Patient had large cratered ulcer therefore increased risk of bleed. We will continue to hold anticoagulant until 2 weeks. (2) Coronary artery disease Status: Acute Qualifiers: Coronary Disease-Associated Artery/Lesion type: bypass graft [place] vs. transplanted heart: [place] heart Comment: Patient remains chest pain-free. Stable continue current medical management. (3) Anemia Status: Chronic Qualifiers: Anemia type: unspecified type Qualified Code(s): D64.9 - Anemia, unspecified Comment: Stable no GI bleeding. (4) Atrial fibrillation Status: Chronic Comment: Continue to hold Xarelto until 2 weeks time. Understand risk and benefits of being off medications. Patient does (5) Hypertension Status: Chronic Qualifiers: Hypertension type: essential hypertension Qualified Code(s): I10 - Essential (primary) hypertension Comment: Continues to have optimal control continue current antihypertensives. (6) Diabetes Status: Acute (7) Morbid obesity Status: Acute Comment: Excess calories lifestyle modification increase exercise. (8) Morbid obesity due to excess calories Status: Acute (9) Morbid obesity due to excess calories Status: Acute Core Measure Documentation - Palliative Care Palliative Care/ Comfort Measures: Not Applicable - Core Measures Any of the following diagnoses?: none Exam - Constitutional Vitals: Temp Pulse Resp BP Pulse Ox 98.5 F 93 H 20 146/66 97 04/27/20 07:46 04/27/20 07:46 04/27/20 07:46 04/27/20 07:46 04/27/20 07:46 General appearance: Present: no acute distress, well-nourished - EENT Eyes: Present: PERRL ENT: hearing intact, clear oral mucosa - Neck Neck: Present: supple, normal ROM - Respiratory Respiratory effort: normal Respiratory: bilateral: CTA - Cardiovascular Heart Sounds: Present: S1 & S2. Absent: rub, click - Extremities Extremities: pulses symmetrical, No edema Peripheral Pulses: within normal limits - Abdominal General gastrointestinal: Present: soft, non-tender, non-distended, normal bowel sounds Male genitourinary: Present: normal - Integumentary Integumentary: Present: clear, warm, dry - Musculoskeletal Musculoskeletal: gait normal, strength equal bilaterally - Psychiatric Psychiatric: appropriate mood/affect, intact judgment & insight - Neurologic Neurologic: CNII-XII intact, moves all extremities Plan Activity: no restrictions Weight Bearing Status: Full Weight Bearing Diet: diabetic Follow up with: PRIMARY CARE, [Primary Care Provider] - 7 Days Prescriptions: Pantoprazole [Protonix INJ] 40 mg PO BID #60 tab
[2020-04-27] MEDS ORDERED: atenoloL 50 MG TAB PO SCH (11:00)
[2020-04-27] MEDS ORDERED: PANTOPRAZOLE 40 MG TAB PO SCH (16:30)
== END 2020-04-27 16:13 | disposition home or self-care (01) ==
LOC: ED 14:02 → 4A 18:10
PROVIDERS: ADMIT Internal Medicine; ATTEND Internal Medicine
DX: K92.2 Gastrointestinal hemorrhage, unspecified (principal); K92.1 Melena; I25.10 Atherosclerotic heart disease of native coronary artery without angina pectoris; D64.9 Anemia, unspecified; I48.20 Chronic atrial fibrillation, unspecified; I10 Essential (primary) hypertension; E11.9 Type 2 diabetes mellitus without complications; E66.01 Morbid (severe) obesity due to excess calories; Z68.41 Body mass index [BMI] 40.0-44.9, adult; Z95.1 Presence of aortocoronary bypass graft; Z79.899 Other long term (current) drug therapy
CPT/HCPCS: 36415; 43235; 71045; 74177; 80048; 80053; 80076; 82962; 83036; 83550; 85014; 85018; 85025; 85610; 85730; 88305; 88342; 93005; 96361; 96365; 96366; 96375; 96376; C9113; G0378; J1170; J2405; J2704; J3490; J7030; J7042; Q9967